=== PATIENT | male | born 1980 | race Two or more races ===

== ENCOUNTER 2017-11-04 06:30 | Inpatient (IN) | payer OTHER ==
[~2017-11-04] VITALS: Ht 162.6 cm; Wt 76.7 kg
[2017-11-04] VITALS (11 sets, daily range): BP systolic 113–133; BP diastolic 66–78
[2017-11-04] MEDS ORDERED: Morphine Sulfate 4mg/ml Inj (IV USE ONLY) IVP ONE (06:45)
[2017-11-04] MEDS ORDERED: Lidocaine 1% 10mg/ml/Epi 0.005mg/ml 30ml vial INJ ONE ×2 (06:45→15:04)
[2017-11-04] MEDS ORDERED: Tetanus/Diptheria/Pertussis Vaccine 0.5ml Syr IM ONE (06:45)
[2017-11-04] MEDS ORDERED: Lidocaine 1% Plain 30 ml INJ ONE (06:46)
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
[2017-11-04] MEDS ORDERED: ceFAZolin 1gm/50ml Premix 50 ML IV ONE (07:00)
[2017-11-04 07:12] LABS: ALANINE AMINOTRANSFERASE 32 U/L (12-78); ALBUMIN 3.8 G/DL (3.4-5.0); ALBUMIN/GLOBULIN RATIO 1.1 (1.0-2.7); ALKALINE PHOSPHATASE 67 U/L (46-116); ANION GAP 11 mmol/L (5-15); ASPARTATE AMINO TRANSFERASE 11 U/L (15-37); BILIRUBIN,TOTAL 0.5 MG/DL (0.2-1.0); BLOOD UREA NITROGEN 20 mg/dL (7-18); CALCIUM 8.9 MG/DL (8.5-10.1); CARBON DIOXIDE 25 MMOL/L (21-32); CHLORIDE 104 MMOL/L (98-107); CREATININE 1.2 MG/DL (0.55-1.30); POTASSIUM 3.8 MMOL/L (3.5-5.1); SODIUM 140 MMOL/L (136-145)
[2017-11-04] MEDS ORDERED: fentaNYL 100 mcg/2 mL IV ONE ×2 (07:15→14:48)
[2017-11-04 07:27] LABS: BASOPHILS % (AUTO) 0.9 % (0.0-2.0); EOSINOPHILS % (AUTO) 0.8 % (0.0-3.0); HEMATOCRIT 46.3 % (42.0-52.0); HEMOGLOBIN 16.1 G/DL (14.2-18.0); LYMPHOCYTES % (AUTO) 32.5 % (20.0-45.0); MEAN CORPUSCULAR VOLUME 84 FL (80-99); MONOCYTES % (AUTO) 9.4 % (1.0-10.0); NEUTROPHILS % (AUTO) 56.3 % (45.0-75.0); PLATELET COUNT 268 K/UL (150-450); RED BLOOD COUNT 5.54 M/UL (4.70-6.10); RED CELL DISTRIBUTION WIDTH 10.9 % (11.6-14.8); WHITE BLOOD COUNT 10.3 K/UL (4.8-10.8)
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
[2017-11-04 10:49] LABS: APPEARANCE,URINE CLEAR; BILIRUBIN, URINE NEGATIVE (NEGATIVE); GLUCOSE, URINE (UA) NEGATIVE (NEGATIVE); KETONES,URINE NEGATIVE (NEGATIVE); LEUKOCYTE ESTERASE ,URINE NEGATIVE (NEGATIVE); NITRITE,URINE NEGATIVE (NEGATIVE); PH,URINE 7 (4.5-8.0); PROTEIN,URINE 1+ (NEGATIVE); UROBILINOGEN,URINE 1 MG/DL (0.0-1.0)
[2017-11-04 10:51] LABS: COLOR,URINE YELLOW
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
[2017-11-04] MEDS ORDERED: Lidocaine 1% MPF 10mg/ml 5ml ONE ×2 (11:50→14:48)
[2017-11-04] MEDS ORDERED: Dexamethasone 4mg/ml vial ONE ×2 (11:50→14:49)
[2017-11-04] MEDS ORDERED: Propofol 200mg/20ml IV ONE ×2 (11:50→14:48)
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
[2017-11-04] MEDS ORDERED: Midazolam 2mg/2ml Inj ONE (14:47)
[2017-11-04] MEDS ORDERED: Glycopyrrolate 0.2mg/ml 1ml Vial ONE (14:48)
[2017-11-04] MEDS ORDERED: Ketorolac 30mg Inj ONE ×2 (14:48→15:08)
[2017-11-04] MEDS ORDERED: Zemuron 50mg/5ml Inj IV ONE (14:49)
[2017-11-04] MEDS ORDERED: NS Irrig 1000ml ONE (15:00)
[2017-11-04] MEDS ORDERED: LR 1000ml ONE (15:00)
[2017-11-04] MEDS ORDERED: Sterile Water Irrig 1000ml IRRIG ONE (15:00)
[2017-11-04] MEDS ORDERED: NS Irrig 2000ml IRRIG ONE (15:00)
[2017-11-04] MEDS ORDERED: Bacitracin 50000 Units Vial ONE (15:04)
[2017-11-04] MEDS ORDERED: Bupivacaine 0.5% Inj 30 ml vial INJ ONE (15:04)
[2017-11-04] MEDS ORDERED: EPINEPHrine 1mg/1ml Amp ONE (15:04)
[2017-11-04] MEDS ORDERED: NeoSporin Gu Irrig 1ml Amp IRRIG ONE (15:04)
[2017-11-04] MEDS ORDERED: Labetalol 5mg/ml 20ml vial IV PRN (15:45)
[2017-11-04] MEDS ORDERED: Hydromorphone 0.5mg/0.5ml inj IVP PRN ×2 (15:45→17:15)
[2017-11-04] MEDS ORDERED: Midazolam 2mg/2ml Inj IVP PRN (15:45)
[2017-11-04] MEDS ORDERED: DiphenhydrAMINE 50mg/ml Inj IVP PRN (15:45)
[2017-11-04] MEDS ORDERED: fentaNYL 100 mcg/2 mL IV PRN (15:45)
[2017-11-04] MEDS ORDERED: LR 1000ml 1,000 ML IVLG SCH (15:45)
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
[2017-11-04] MEDS ORDERED: Bacitracin Oint 15gm Tube TOPIC ONE (16:07)
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
--- NOTE | 2017-11-04 17:16 | 48 Hour Post Anesthesia Eval ---
Post Anesthesia Evaluation Procedure: washout left arm and shoilder Date of Evaluation: Nov 04, 2017 Time of Evaluation: 17:25 Blood Pressure Systolic: 119 0: 67 Pulse Rate: 74 Respiratory Rate: 15 Temperature (Fahrenheit): 97.3 O2 Sat by Pulse Oximetry: 100 Airway: patent Nausea: No Vomiting: No Pain Intensity: 0 Hydration Status: adequate Mental Status/LOC: patient returned to baseline Post-Anesthesia Complications: none Follow-up care needed: N/A Celina Arriaga M.D. Nov 04, 2017 17:16
[2017-11-04 19:15] LABS: HEMATOCRIT 39.4 % (42.0-52.0); HEMOGLOBIN 13.4 G/DL (14.2-18.0); MEAN CORPUSCULAR VOLUME 87 FL (80-99); PLATELET COUNT 232 K/UL (150-450); RED BLOOD COUNT 4.53 M/UL (4.70-6.10); RED CELL DISTRIBUTION WIDTH 11.6 % (11.6-14.8); WHITE BLOOD COUNT 10.9 K/UL (4.8-10.8)
[2017-11-04] MEDS ORDERED: HYDROmorphone 1mg/ml Carpuject IVP PRN (20:00)
[2017-11-04] MEDS ORDERED: Norco 5mg/325mg tab ORAL PRN (20:00)
[2017-11-04] MEDS ORDERED: HYDROcodone/Acetamin 10/325 tab ORAL PRN (20:00)
[2017-11-04] MEDS ORDERED: Milk of Magnesia 30ml Ud ORAL PRN (20:00)
[2017-11-04] MEDS: Docusate 100mg cap ORAL SCH (20:45)
[2017-11-04] MEDS ORDERED: Vancomycin 1250mg/D5W 250ml IVPB SCH (21:00)
[2017-11-04 21:10] LABS: ANION GAP 6 mmol/L (5-15); BLOOD UREA NITROGEN 11 mg/dL (7-18); CALCIUM 8.3 MG/DL (8.5-10.1); CARBON DIOXIDE 27 MMOL/L (21-32); CHLORIDE 105 MMOL/L (98-107); CREATININE 0.8 MG/DL (0.55-1.30); POTASSIUM 4.3 MMOL/L (3.5-5.1); SODIUM 138 MMOL/L (136-145)
[2017-11-04] MEDS: ceFAZolin sod 2 GM in D5W 110 ML IV SCH (23:18)
[2017-11-05] VITALS: BP 108/62
[2017-11-05 04:00] VITALS: BP 109/61
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
[2017-11-05] MEDS: Vancomycin 750mg/NS 250ml IVPB SCH ×2 (04:11→13:08)
[2017-11-05] MEDS: Ketorolac 30mg Inj IV PRN ×3 (04:12→19:27)
[2017-11-05] MEDS: ceFAZolin sod 2 GM in D5W 110 ML IV SCH ×3 (06:31→23:04)
[2017-11-05 07:24] LABS: BASOPHILS % (AUTO) 0.5 % (0.0-2.0); EOSINOPHILS % (AUTO) 0.3 % (0.0-3.0); HEMATOCRIT 38.6 % (42.0-52.0); HEMOGLOBIN 13.6 G/DL (14.2-18.0); LYMPHOCYTES % (AUTO) 16.4 % (20.0-45.0); MEAN CORPUSCULAR VOLUME 85 FL (80-99); MONOCYTES % (AUTO) 9.1 % (1.0-10.0); NEUTROPHILS % (AUTO) 73.8 % (45.0-75.0); PLATELET COUNT 229 K/UL (150-450); RED BLOOD COUNT 4.52 M/UL (4.70-6.10); RED CELL DISTRIBUTION WIDTH 11.2 % (11.6-14.8); WHITE BLOOD COUNT 12.3 K/UL (4.8-10.8)
[2017-11-05 07:43] LABS: ANION GAP 9 mmol/L (5-15); BLOOD UREA NITROGEN 14 mg/dL (7-18); CALCIUM 8.2 MG/DL (8.5-10.1); CARBON DIOXIDE 26 MMOL/L (21-32); CHLORIDE 107 MMOL/L (98-107); POTASSIUM 3.9 MMOL/L (3.5-5.1); SODIUM 141 MMOL/L (136-145)
[2017-11-05 08:00] VITALS: BP 105/64
[2017-11-05] MEDS: Docusate 100mg cap ORAL SCH ×2 (08:16→17:26)
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
[2017-11-05 11:06] VITALS: BP 102/60
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
[2017-11-05 15:51] VITALS: BP 106/58
[2017-11-05 20:00] VITALS: BP 105/59
[2017-11-06 00:16] VITALS: BP 101/60
[2017-11-06 04:30] VITALS: BP 114/72
[2017-11-06] MEDS: ceFAZolin sod 2 GM in D5W 110 ML IV SCH (06:45)
[2017-11-06 07:28] LABS: BASOPHILS % (AUTO) 1.1 % (0.0-2.0); EOSINOPHILS % (AUTO) 1.3 % (0.0-3.0); HEMATOCRIT 36.4 % (42.0-52.0); HEMOGLOBIN 12.5 G/DL (14.2-18.0); LYMPHOCYTES % (AUTO) 31.5 % (20.0-45.0); MEAN CORPUSCULAR VOLUME 86 FL (80-99); MONOCYTES % (AUTO) 11.1 % (1.0-10.0); NEUTROPHILS % (AUTO) 54.9 % (45.0-75.0); PLATELET COUNT 198 K/UL (150-450); RED BLOOD COUNT 4.24 M/UL (4.70-6.10); RED CELL DISTRIBUTION WIDTH 11.2 % (11.6-14.8); WHITE BLOOD COUNT 7.2 K/UL (4.8-10.8)
[2017-11-06 07:41] LABS: ANION GAP 5 mmol/L (5-15); BLOOD UREA NITROGEN 11 mg/dL (7-18); CALCIUM 8.3 MG/DL (8.5-10.1); CARBON DIOXIDE 30 MMOL/L (21-32); CHLORIDE 106 MMOL/L (98-107); CREATININE 0.7 MG/DL (0.55-1.30); SODIUM 141 MMOL/L (136-145)
[2017-11-06 08:00] VITALS: BP 114/65
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
[2017-11-06] MEDS: Docusate 100mg cap ORAL SCH ×2 (08:25→17:55)
[2017-11-06] MEDS: Ketorolac 30mg Inj IV PRN (08:29)
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
[2017-11-06 12:00] VITALS: BP 101/61
--- NOTE | 2017-11-06 13:08 | General Progress Note ---
Progress Note Progress Note Surgery: doing well. pain improved. no n/v/f/c. labs okay. leukocytosis resolved. afebrile, HD stable, recovering dressings removed. left shoulder wound c/d/i. left forearm wounds c/d/i. no drainage. no signs of infection. healing well. good motor, neuro, sensory. no issues. splint and dressings reapplied. okay to d/c home diet as tolerated full range of motion in left upper extremity but limited weights and activity will need repeat plain films of left arm in 4 weeks. can leave wounds open to air or loose dressings prn okay to shower left arm splint until repeat plain films suture and belinda removal in 1-2 week. wound check in 1 week needs to establish care with PCP [place] upon discharge for referral to surgeon and ortho in his network. welcome to follow up with me next week. thank you Simón Spangler Nov 06, 2017 13:08
[2017-11-06 16:00] VITALS: BP 101/65
[2017-11-06 20:00] VITALS: BP 115/67
[2017-11-07] VITALS: BP 108/61
[2017-11-07 04:00] VITALS: BP 113/68
[2017-11-07 07:23] LABS: BASOPHILS % (AUTO) 0.8 % (0.0-2.0); EOSINOPHILS % (AUTO) 1.5 % (0.0-3.0); HEMATOCRIT 38.9 % (42.0-52.0); HEMOGLOBIN 13.1 G/DL (14.2-18.0); LYMPHOCYTES % (AUTO) 30.9 % (20.0-45.0); MEAN CORPUSCULAR VOLUME 86 FL (80-99); MONOCYTES % (AUTO) 8.9 % (1.0-10.0); NEUTROPHILS % (AUTO) 57.9 % (45.0-75.0); PLATELET COUNT 233 K/UL (150-450); RED BLOOD COUNT 4.51 M/UL (4.70-6.10); RED CELL DISTRIBUTION WIDTH 11.6 % (11.6-14.8); WHITE BLOOD COUNT 8.3 K/UL (4.8-10.8)
[2017-11-07 08:00] VITALS: BP 115/70
--- NOTE | 2017-11-07 08:31 | Discharge Instructions ---
Discharge Instructions Discharge Instructions Diet: regular Resume Normal Activity?: No Activity: light activity, ambulate Pneumonia Vaccine: vaccine not indicated Influenza Vaccine (Dec to May): vaccine not indicated Follow Up Orders 1. Patient needs to establish with a PCP in his network to arrange with proper surgery post op care 2. General Surgeon to leave wound care orders at DC For Surgical Patients Dressing Care: keep dry and clean For Congestive Heart Failure Reminder Report to your physician any weight gain of 5 pounds or more in one week. Domingo Quinones M.D. Nov 07, 2017 08:31
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
[2017-11-07] MEDS: Docusate 100mg cap ORAL SCH (08:48)
--- NOTE | 2017-11-07 11:10 | General Progress Note ---
Progress Note Progress Note Surgery: doing well. pain minimal. no n/v/f/c. edema improved. moving arm much better today. afebrile, HD stable, labs okay exam benign left shoulder wound c/d/i. left arm wound c/d/i no signs of infection healing well. left shoulder - prn dressings. okay to leave open to air left arm - needs splint. padding, splint x 4 weeks. needs repeat films in 4 weeks outpatient pcp follow up. needs surgeon for suture removal in 1-2 weeks. needs ortho outpatient for f/u films and splint in 4 weeks. abx as per ID okay to d/c home Simón Spangler Nov 07, 2017 11:10
[2017-11-07 12:00] VITALS: BP 110/76
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
== END 2017-11-07 13:13 | disposition home or self-care (01) | DRG 364 ==
LOC: EMR 07:04 → EDBEDREQ 08:05 → EDBEDREQSVC 08:05 → EDBEDREQ 08:22 → SUR 11:08 → 3E 20:05
PROC: 0KQ60ZZ Repair Left Shoulder Muscle, Open Approach (ICD-10-PCS; 2017-11-04)
PROC: 0X3 Anatomical Regions, Upper Extremities, Control (ICD-10-PCS; 2017-11-04)
PROC: 0HQ1XZZ Repair Face Skin, External Approach (ICD-10-PCS; 2017-11-04)
PROC: 0X3 Anatomical Regions, Upper Extremities, Control (ICD-10-PCS; principal; 2017-11-04 10:30)
DX: S41.012A Laceration without foreign body of left shoulder, initial encounter (principal); E86.0 Dehydration; S01.81XA Laceration without foreign body of other part of head, initial encounter; S51.812A Laceration without foreign body of left forearm, initial encounter; S52.602A Unspecified fracture of lower end of left ulna, initial encounter for closed fracture; X99.1XXA Assault by knife, initial encounter; Y92.038 Other place in apartment as the place of occurrence of the external cause; F19.10 Other psychoactive substance abuse, uncomplicated
CPT/HCPCS: 36415; 71045; 80048; 80053; 80307; 80329; 81001; 85007; 85025; 85610; 85730; 86850; 86900; 86901; 90471; 90715; 93005; 94003; 94150; 99291; J2250; J2405